=== PATIENT | female | born 1965 | race African-American/Black ===

== ENCOUNTER 2021-08-22 09:28 | Emergency (ER) | payer MEDICAID ==
[~2021-08-22] VITALS: Ht 149.9 cm; Wt 116.0 kg
[2021-08-22] MEDS ORDERED: IPRATROPIUM BROMIDE (0.02%) 0.5MG/2.5ML NEB HHN ONE (10:45)
[2021-08-22] MEDS ORDERED: ALBUTEROL (0.083%) 2.5MG/3ML NEB HHN ONE ×4 (10:45→14:15)
[2021-08-22] MEDS ORDERED: METHYLPREDNISOLONE SOD SUCC 125 MG/2 ML VIAL IV ONE (10:45)
[2021-08-22 11:11] LABS: BASOPHILS % 0.3 % (0.0-2.0); EOSINOPHILS % 2.6 % (0.0-5.0); HEMOGLOBIN. 12.6 g/dL (12.0-16.0); LYMPHOCYTES % 23.4 % (20.0-50.0); MEAN CORPUSCULAR HEMOGLOBIN 28.3 pg (28.0-32.0); MEAN CORPUSCULAR VOLUME 85.5 fL (81.0-99.0); MEAN PLATELET VOLUME 9.5 fl (7.4-10.4); MONOCYTES % 7.1 % (2.0-8.0); NEUTROPHILS % 66.6 % (40.0-76.0); PLATELET 260 x1000/uL (130-400); RED BLOOD CELL COUNT 4.44 mill/uL (4.2-5.4); RED CELL DISTRIBUTION WIDTH 13.9 % (11.6-14.6)
[2021-08-22 11:17] LABS: CHLORIDE 109 mEq/L (98-107)
[2021-08-22] MEDS ORDERED: HYDROCHLOROTHIAZIDE 25MG TABLET PO ONE (12:00)
[2021-08-22] MEDS ORDERED: AMLODIPINE 10MG TABLET PO ONE (12:00)
[2021-08-22] MEDS ORDERED: LOSARTAN POTASSIUM 100 MG TABLET PO ONE (12:00)
[2021-08-22] MEDS ORDERED: HYDRALAZINE 20MG/ML VIAL IV ONE (17:00)
[2021-08-22 18:06] VITALS: BP 175/83
== END 2021-08-22 19:25 | disposition short-term general hospital (02) ==
LOC: ER 09:28 → CANBEDREQ 20:39
DX: J45.41 Moderate persistent asthma with (acute) exacerbation (principal); I10 Essential (primary) hypertension; E11.9 Type 2 diabetes mellitus without complications; Z20.822 Contact with and (suspected) exposure to COVID-19
CPT/HCPCS: 36415; 71045; 80053; 85025; 87426; 93005; 94640; 96374; 96375; 99285; J0360; J2930; Z7610